=== PATIENT | female | born 1930 | race Caucasian/White ===

== ENCOUNTER → 2017-11-20 | Outpatient (CLI) | payer OTHER ==
[~2017-11-20] VITALS: Ht 172.7 cm; Wt 79.8 kg
[~2017-11-20] MED LIST: ALENDRONATE SOD70 MG PO; ALLEGRA-D 24 H1 EACH PO; ASPIR 8181 MG PO; BENTYL 10 MG CA10 M1 PO; CELEBREX 200 M200 M1 PO; CO Q-10100 MG PO; CRESTOR10 MG PO; FISH OIL 1,001000 M2 PO; FLAX OIL1000 MG PO; FLUTICASONE PRO16 GM NASAL; GAS RELIEF125 MG PO; IRBESARTAN300 MG PO; MAGBID ER84 MG PO; MECLIZINE HCL25 MG PO; NEURONTIN 300300 M1 PO; PRILOSEC 20 MG20 MG PO; RESTASIS1 EACH OPHTHALMIC; UNICOMPLEX M TA1 TA1 PO; VITAMIN B COMP1 EACH PO; VITAMIN D2000 UNIT PO
--- NOTE | ~2017-11-20 | HPC ---
[facility] [place] [address] PAIN MANAGEMENT CONSULTATION Name: KODI LEUNG [id number] Admission: 11/20/17 Attend Phys: Brodie Benitez DO Discharge: Date of : 32 Report #: [id number] THIS REPORT FOR: //name// CC: YAZAN Benitez DATE OF SERVICE: 11/20/2017 The patient is a pleasant 87-year-old female, seen in consultation at the request of Dr. Burgos for assistance with management of chronic axial back pain. She notes chronic back pain for some time, has been using a cane for balance of last 6-8 months. She fell in January with exacerbation of back pain and falling about 6 weeks ago, has significant pain exacerbated across the low back, left greater than right side, some radiation in the posterior thigh, but not below the knee. She denies myelopathic symptoms including weakness, paresthesia, bowel or bladder continence changes. Notes pain is exacerbated with walking, standing and weightbearing. Gets some relief with heat and pain medicines. Describes steady stabbing pain, she rates anywhere from 7-9 on a VAS. REVIEW OF SYSTEMS: Complete review of systems was attached to chart and gone over with the patient. She is . She does not smoke or drink alcohol to excess. History of hypertension, treated with irbesartan. History of some IBS symptoms, well treated with dicyclomine; gastroesophageal reflux for which she takes Prilosec; dyslipidemia for which takes Crestor. Takes Celebrex 200 mg daily for aforementioned axial back pain. Gabapentin 300 mg twice a day for chronic pain as well. Remaining review of systems is noncontributory. She has had surgery on her feet and bilateral knees, feet in the late and knee surgery in the mid-1999s (2004 and 2005). The patient works as a homemaker. Pain impact score notes significant impact on activity, walking and work. PHYSICAL EXAMINATION: Reveals a 5 feet 8 inches, 176-pound female, BMI is 26.8 kg/m2, blood pressure 145/65, pulse 72, respirations 16, room air oxygen saturation 96%. Rises from chair using armrest. Cranial nerves 2-12 are grossly intact. Pupils are equal and react to light and accommodation. Extraocular muscles are intact. She does have some subjective vertigo, again no nystagmus. Thyroid is modestly enlarged. Cervical range of motion is full. 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 She does have a notable thoracic kyphosis, a bit of an ataxic gait. Tender in the lumbar paravertebral muscles and SI area, left greater than right. Heart is regular rhythmical without murmur. Lungs show some scattered rhonchi. Lower extremities strength shows diminished strength in left leg to all muscle groups [address] [address] PAIN MANAGEMENT CONSULTATION Name: KODI LEUNG Room #: REG [facility].#: [id number] Admission: 11/20/17 Attend Phys: Brodie Benitez DO Discharge: Date of : 32 Report #: [id number] tested about 3/5 versus 4/5 for the right leg. Straight leg raise is negative. Patellar and Achilles reflexes generally preserved. Positive KERI test on the left. Positive Gaenslen's on the left. DIAGNOSTIC STUDIES: Include x-rays of the lumbar spine from 05/08/2017 after the January fall, but before the most recent fall, did note retrolisthesis at L4-L5 with some facet arthropathy. 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 RECOMMENDATIONS: After discussion with the patient today, we elected to move forward with left SI joint injection under fluoroscopy. Follow up in 2 weeks for reevaluation, consideration for left L4-L5 and L5-S1 facet joint injection under fluoroscopy if indicated clinically. Thanks for allowing me to participate in the patient's care. I will keep you abreast of her progress. PROCEDURE NOTE: Left SI joint injection under fluoroscopy. PROCEDURE: After informed consent was obtained, the patient was taken to the fluoroscopy suite and placed in prone position. After sterile prep and drape, skin wheal was raised. A 22-gauge stylet needle was placed to contact the inferior aspect of the left SI joint. Negative aspiration was accomplished. 1 mL of Omnipaque was injected showed spread in the joints followed with 40 mg triamcinolone plus 2 mL of 0.5% preservative-free bupivacaine. Needle was removed. The area was cleansed, Band-Aids applied. The patient was monitored for an appropriate period of time, discharged in good and stable condition. Fluoroscopy time was 7 seconds. The patient noted incremental relief on discharge. Follow up in 2 weeks to evaluate efficacy and discuss further therapeutic options. I will keep you abreast of her progress. <ELECTRONICALLY SIGNED> By: Brodie Benitez DO 11/21/17 0922 1602 2220 Brodie Benitez, DO /nt
[2017-11-20 13:18] VITALS: BP 145/65
== END | disposition home or self-care (01) ==
LOC: PAIN 07:00
DX: M53.3 Sacrococcygeal disorders, not elsewhere classified (principal); M47.817 Spondylosis without myelopathy or radiculopathy, lumbosacral region; G89.29 Other chronic pain; E78.5 Hyperlipidemia, unspecified; I10 Essential (primary) hypertension; R42 Dizziness and giddiness; Z68.26 Body mass index [BMI] 26.0-26.9, adult; Z79.899 Other long term (current) drug therapy; K58.9 Irritable bowel syndrome, unspecified; K21.9 Gastro-esophageal reflux disease without esophagitis

== ENCOUNTER → 2017-12-08 | Outpatient (CLI) | payer OTHER ==
[~2017-12-08] VITALS: Ht 172.7 cm; Wt 78.0 kg
--- NOTE | ~2017-12-08 | HPC ---
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 We proceeded with left SI joint injection at that time. She returns to the pain clinic today noting incremental improvement of baseline pain. Pain is a little bit higher and is now over the right low back. The patient notes the pain is exacerbated with standing, walking and rotating. Does note that the left side is better following the prior injection. Rates the pain as a 7 on a VAS. ASSESSMENT: Symptomatic lumbosacral spondylosis and lumbar spondylosis without myelopathy. RECOMMENDATION: Right L4-L5 and L5-S1 facet joint injection under fluoroscopy. Continue with range of motion, stretching and PT. Follow up in 8 weeks for reevaluation. PROCEDURE: Right L4-L5 and L5-S1 facet joint injection under fluoroscopy. INDICATION: M47.816, M47.817. DESCRIPTION OF PROCEDURE: After written informed consent was obtained, the patient was taken to the fluoroscopy suite and placed in the prone position. After sterile prep and drape, skin wheal was raised. A 22-gauge stylet needle was placed to contact the inferior aspect of the right L4-L5 facet joint. A second needle was placed to contact the inferior aspect of the left L5-S1 facet joint. Negative aspiration was accomplished. 0.5 mL of Omnipaque was injected, which showed spread within joints followed with 20 mg of triamcinolone plus 1 mL of 0.5% preservative free bupivacaine. Needle was removed, the area was cleansed and Band-Aid was applied. The patient monitored for an appropriate period of time, discharged in good and stable condition, noting incremental improvement of baseline pain. Fluoroscopy time was under 15 seconds. <ELECTRONICALLY SIGNED> By: Brodie Benitez DO 12/11/17 0811 1554 0730 Brodie Benitez DO /nt
[2017-12-08 13:17] VITALS: BP 154/70
== END | disposition home or self-care (01) ==
LOC: PAIN 12-05 09:08
DX: M47.816 Spondylosis without myelopathy or radiculopathy, lumbar region (principal); M47.817 Spondylosis without myelopathy or radiculopathy, lumbosacral region; M53.3 Sacrococcygeal disorders, not elsewhere classified; Z79.82 Long term (current) use of aspirin; Z79.899 Other long term (current) drug therapy

== ENCOUNTER → 2017-12-29 | Outpatient (CLI) | payer OTHER ==
[~2017-12-29] VITALS: Ht 172.7 cm; Wt 76.3 kg
--- NOTE | ~2017-12-29 | HPC ---
[facility] [address] PAIN MANAGEMENT CONSULTATION Name: LEUNGKODI BOLANOS Wilbert Room #: REG [facility] Mikey.#: [id number] Admission: 12/29/17 Attend Phys: Brodie Benitez DO Discharge: Date of : 32 Report #: [id number] THIS REPORT FOR: //name// CC: Nael Benitez HISTORY OF PRESENT ILLNESS: The patient is an 87-year-old female, prior seen in the pain clinic on 12/08/2017. We did a right L4-L5 and L5-S1 facet joint injections with significant improvement of her functional status. She is much better, able to stand longer after left SI joint injection 11/20/2017. Her SI and low lumbar pain seems to be improved. She still, however, has pain that she rates a 0-8 on a VAS pain across the low back. She does have bilateral knee pain (she does get shots in the knees and take Celebrex for this). She rises from chair using armrest, antalgic gait. Lumbar flexion is limited, diffuse tenderness across the low back, modestly positive straight leg raise bilaterally. Reviewing the MRI, which is somewhat dated, she does have transitional anatomy. The rudimentary disk at S1-S2 and retrolisthesis at L4-L5. ASSESSMENT: Symptomatic lumbar radiculopathy secondary to spinal stenosis, ongoing axial back pain relatively improved with current interventional therapy. RECOMMENDATION: Injection under fluoroscopy today. Follow up simply as needed. Continue physical activity as able. PROCEDURE NOTE PROCEDURE: Lumbar epidural injection under fluoroscopy. PROCEDURE: Lumbar epidural steroid injection. PROCEDURE NOTE: After both written and informed consent to include risk of spinal cord damage, increased pain, weakness and dural puncture, the patient was taken to the fluoroscopy suite, placed in the prone position. After sterile prep and drape, a skin wheal with lidocaine was raised. A 22-gauge epidural Tuohy needle was inserted in the midline at L5-S1 with good loss to resistance. Negative aspiration for cerebrospinal fluid or blood was noted. Then 1 mL of Omnipaque under biplanar fluoroscopy showed good spread within the epidural space. This was followed with 60 mg of triamcinolone plus 1 mL of 1.5% preservative-free Xylocaine, 0.5 mL Xylocaine was then injected to flush the [address] [address] PAIN MANAGEMENT CONSULTATION Name: LEUNGKODI Room #: [facility]#: [id number] Admission: 12/29/17 Attend Phys: Brodie Benitez DO Discharge: Date of : 32 Report #: [id number] needle; it was removed. The patient was monitored for an appropriate period of time and discharged in good and stable condition. <ELECTRONICALLY SIGNED> By: Brodie Benitez DO 12/31/17 0740 1519 2105 Brodie Benitez DO /nt
[2017-12-29 13:07] VITALS: BP 160/72
== END ==
LOC: PAIN 06:56
DX: M54.16 Radiculopathy, lumbar region (principal); G89.29 Other chronic pain; M48.061 Spinal stenosis, lumbar region without neurogenic claudication; Z98.890 Other specified postprocedural states; Z79.82 Long term (current) use of aspirin; Z79.899 Other long term (current) drug therapy

== ENCOUNTER → 2018-10-15 | Outpatient (CLI) | payer OTHER, MEDICARE ==
[~2018-10-15] VITALS: Ht 172.7 cm; Wt 78.1 kg
[~2018-10-15] MED LIST changes: +IRBESARTAN-HCT1 EAC1 PO; +NORVASC2.5 MG PO
[2018-10-15 13:35] VITALS: BP 123/68
--- NOTE | 2018-10-15 13:51 | NUR ---
Pain Clinic Assessment: 1. History of Osteoarthritis: knees back HIPS History of Rheumatoid Arthritis: Not Applicable 2. Height: 5 ft. 8 in. 172.7 cm. Weight: 172.2 lb. oz. 78.109 kg. Patient's BMI: 26.2 3. Vital Signs: BP: 123/68 Pulse: 65 Resp: 16 Temp: 02 Sat: 98 ECG Mon: 4. Pain Intensity: 6-7 5. Fall Risk: Dizziness: Y Needs help standing or walking: Y Fallen in the last 3 months: N Fall risk comments: USES CANE 6. Patient on Blood Thinner: None 7. History of Hypertension: Y 8. Opioid Therapy greater than 6 weeks: N Opiate Contract Signed: 9. Risk Assessment Tool Provided: LOW RISK 10. Functional Assessment Tool: 11. Recreational Drug Use: Never Drug Type: Tobacco Use: Never Smoker Tobacco Type: Amount or Packs/day: How Many Years: Alcohol Use: Yes Frequency: Daily Quant: 1
--- NOTE | 2018-10-21 15:29 | HPC ---
[facility] [place] [address] PAIN MANAGEMENT CONSULTATION Name: KODI LEUNG Room #: REG [facility].#: [id number] Admission: 10/15/18 ������������������ Attend Phys: Rustam Vaughan MD Discharge: ������������������ Date of : 32 Report #: [id number] THIS REPORT FOR: //name// CC: YAZAN Vaughan DATE OF SERVICE: 10/15/2018 The patient returns to the pain clinic for the first time since December of last year. I previously treated her for low back pain with radiculopathy successfully and the pain is now returning. She scores pain as a 6-7/10 in the low back with chronic aching, tenderness and soreness. Pain is increased with standing, walking and bending. MEDICATIONS: Reviewed and reconciled. All provided by Dr. Burgos. She is on amlodipine for hypertension. She currently is utilizing gabapentin and celecoxib 200 mg daily for pain with some improvement. Occasionally, she takes it twice a day. ALLERGIES: None. PAST MEDICAL HISTORY: Significant for osteoarthritis with arthroscopy of the knee in 2004 and 2005. She complains of generalized degenerative osteoarthritis and kidney disease. REVIEW OF SYSTEMS: Positive for nocturia. She has some fatigue and weakness. PHYSICAL EXAMINATION: A pleasant 87-year-old. She is alert and oriented, without signs of depression, anxiety, dementia or overmedication. She is able to independently move from sitting to standing position, walks with mildly antalgic features. She has mild tenderness across the low back. Straight leg raising is positive to the right and reproducing some pain into the right hip. Most of the pain is across the lumbosacral segment. IMPRESSION: Chronic low back pain with radiculopathy secondary to lumbar degenerative disease and lumbar scoliosis. The patient has responded nicely to prior epidural injections. PLAN: Repeat epidural injection under fluoroscopic guidance. PROCEDURE: She was taken to fluoroscopic suite, placed prone, skin prepped with ChloraPrep, skin anesthetized over the L5-S1 interspace. A 20-gauge Tuohy epidural needle advanced first attempt to the epidural space with loss of resistance technique. No blood or CSF was aspirated. 1 mL of Omnipaque injected. Good spread of dye observed in the epidural space followed by 3 mL of [facility] [address] [place] [address] PAIN MANAGEMENT CONSULTATION Name: KODI LEUNG Room #: REG [facility].#: [id number] Admission: 10/15/18 ������������������ Attend Phys: Rustam Vaughan MD Discharge: ������������������ Date of : 32 Report #: [id number] 0.5% lidocaine mixed with 80 mg of triamcinolone. She tolerated the procedure well. Pain score 1 at discharge. Follow up as needed. ��������������������������������������������� <ELECTRONICALLY SIGNED> ���������������������������������������� By: Rustam Vaughan MD ��������������������������������������������� 10/21/18 1529 1114 2234 Rustam Vaughan MD /nt
== END | disposition home or self-care (01) ==
LOC: PAIN 06:50
DX: M51.16 Intervertebral disc disorders with radiculopathy, lumbar region (principal); M41.86 Other forms of scoliosis, lumbar region; G89.29 Other chronic pain; I10 Essential (primary) hypertension; M17.10 Unilateral primary osteoarthritis, unspecified knee; Z79.899 Other long term (current) drug therapy; Z98.890 Other specified postprocedural states; Z79.82 Long term (current) use of aspirin

== ENCOUNTER → 2018-11-30 | Outpatient (CLI) | payer OTHER, MEDICARE ==
[~2018-11-30] VITALS: Ht 172.7 cm; Wt 73.2 kg
--- NOTE | ~2018-11-30 | HPC ---
[facility] [place] [address] [place] [address] PAIN MANAGEMENT CONSULTATION Name: KODI LEUNG [facility] [id number] Admission: 11/30/18 ������������������ Attend Phys: Rustam Vaughan MD Discharge: ������������������ Date of : 32 Report #: [id number] THIS REPORT FOR: //name// CC: YAZAN Vaughan FOLLOW UP VISIT: Low back pain. The patient returns to pain clinic today. She still has some back pain and unfortunately did not respond as well as we hoped for her most recent epidural. Ten days ago, which would have been roughly 6 weeks after her injection she developed classic shingles rash in the left T4-5 distribution. The rash was identified fairly quickly and she was fortunately started on acyclovir and is completing that course of therapy at this time. The lesions have dried fairly quickly and there are no open lesions at this time, although she has significant scarring. There is light touch discomfort and sensitivity consistent with this painful neuropathic condition. She believes that she is getting slightly better. Her initial presentation was for low back pain, which was significantly spondylitic; however, there was also some radicular component. She has had previous epidural injections with good improvement. Her last injection was in December. I reviewed both of those films. Injection site quite similar, so I would not give up necessarily on epidural injections and would consider repeat injection as a possibility. I will note that Dr. Benitez's previous injection for her was at L5-S1. I injected her slightly above that at L4-L5 and if we repeat another injection, I would suggest that we do so in that location given her previous response. We will hold off at this point in time with her ongoing shingles. All medications were reviewed and reconciled. She is on no blood thinning medications. Dr. Burgos provided with amlodipine as well as irbesartan/hydrochlorothiazide for blood pressure. She takes no opioid medication. She is not a fall risk at this time and has not fallen within the last 3 months. SOCIAL HISTORY: She denies use of tobacco and alcohol. PHYSICAL EXAMINATION: Blood pressure 126/71, heart rate 79, respirations 16. She is 5 feet 8 inches with a BMI of 24.5. Examination of the shingles rash shows a very classic subacute well healed scarring along the T4-T5 distribution on the left with hypersensitivity. She has chronic pain across her low back and tenderness. Straight leg raising reproduces some pain, but mostly across the low back. There is not much discomfort into the lower extremities. Corral and Achilles reflexes are diminished bilaterally. Strength [place] [address] PAIN MANAGEMENT CONSULTATION Name: KODI LEUNG Room #: REG [facility] Aleksey#: [id number] Admission: 11/30/18 ������������������ Attend Phys: Rustam Vaughan MD Discharge: ������������������ Date of : 32 Report #: [id number] IMPRESSION: 1. Chronic low back pain with radiculopathy and spondylosis. She also has lumbar scoliosis. 2. Subacute healed lesions of shingles with some early persistent postherpetic neuralgia. 3. Hypertension. 4. Osteoarthritis, previous surgery on feet and bilateral knee. RECOMMENDATIONS: 1. I have ordered for her Lidoderm patches 5% to be applied 12 on and 12 off instructions provided. 2. Consider the use of tricyclic amitriptyline at very low dose, which has been shown to be helpful in the prevention of postherpetic neuralgia. We discussed this at some length. She does have fears of her frequent trips to the bathroom in the middle of the night. She does not want to sleep through these and she is also worried about getting up in the middle of the night and being unsteady on her feet. I do not want to create a fall risk and so I have held off on this important medication. We will keep it, however, in reserve and we will consider initiating therapy with amitriptyline if her postherpetic neuralgia is not resolving with time and her current medication regimen. Repeat epidural injection may be considered in another month or two if her back pain worsens. ��������������������������������������������� ���������������������������������������� By: ��������������������������������������������� [id number] Rustam Vaughan MD /nt
[2018-11-30 12:55] VITALS: BP 126/61
--- NOTE | 2018-11-30 13:04 | NUR ---
Pain Clinic Assessment: 1. History of Osteoarthritis: knees back HIPS History of Rheumatoid Arthritis: Not Applicable 2. Height: 5 ft. 8 in. 172.7 cm. Weight: 161.4 lb. oz. 73.211 kg. Patient's BMI: 24.5 3. Vital Signs: BP: 126/61 Pulse: 79 Resp: 16 Temp: 02 Sat: 96 ECG Mon: 4. Pain Intensity: 6 BACK 10 SHINGLES 5. Fall Risk: Dizziness: N Needs help standing or walking: Y Fallen in the last 3 months: N Fall risk comments: USES CANE 6. Patient on Blood Thinner: None 7. History of Hypertension: Y 8. Opioid Therapy greater than 6 weeks: N Opiate Contract Signed: 9. Risk Assessment Tool Provided: LOW RISK 10. Functional Assessment Tool: 11. Recreational Drug Use: Never Drug Type: Tobacco Use: Never Smoker Tobacco Type: Amount or Packs/day: How Many Years: Alcohol Use: No Frequency: Quant:
== END ==
LOC: PAIN 06:56
DX: G89.29 Other chronic pain (principal); M47.26 Other spondylosis with radiculopathy, lumbar region; M41.86 Other forms of scoliosis, lumbar region; I10 Essential (primary) hypertension; M17.0 Bilateral primary osteoarthritis of knee; M19.071 Primary osteoarthritis, right ankle and foot; M19.072 Primary osteoarthritis, left ankle and foot; Z79.899 Other long term (current) drug therapy

== ENCOUNTER → 2019-01-21 | Outpatient (CLI) | payer OTHER, MEDICARE ==
[~2019-01-21] VITALS: Ht 172.7 cm; Wt 72.8 kg
[~2019-01-21] MED LIST changes: +LIDOCAINE1 EACH TOP; +MAGNESIUM PO
[2019-01-21 13:38] VITALS: BP 143/69
--- NOTE | 2019-01-21 13:56 | NUR ---
Pain Clinic Assessment: 1. History of Osteoarthritis: knees back HIPS History of Rheumatoid Arthritis: Not Applicable 2. Height: 5 ft. 8 in. 172.7 cm. Weight: 160.4 lb. oz. 72.757 kg. Patient's BMI: 24.4 3. Vital Signs: BP: 143/69 Pulse: 70 Resp: 14 Temp: 02 Sat: 96 ECG Mon: 4. Pain Intensity: 9-WALKING 5. Fall Risk: Dizziness: Y Needs help standing or walking: Y Fallen in the last 3 months: N Fall risk comments: USES CANE 6. Patient on Blood Thinner: None 7. History of Hypertension: Y 8. Opioid Therapy greater than 6 weeks: N Opiate Contract Signed: 9. Risk Assessment Tool Provided: LOW RISK 10. Functional Assessment Tool: 11. Recreational Drug Use: Never Drug Type: Tobacco Use: Never Smoker Tobacco Type: Amount or Packs/day: How Many Years: Alcohol Use: No Frequency: Quant:
--- NOTE | 2019-01-26 17:25 | HPC ---
[facility] [address] [place] [address] PAIN MANAGEMENT CONSULTATION Name: KODI LEUNG [facility] [id number] Admission: 01/21/19 ������������������ Attend Phys: Rustam Vaughan MD Discharge: ������������������ Date of : 32 Report #: [id number] THIS REPORT FOR: //name// CC: Nael Vaughan DATE OF SERVICE: 01/21/2019 Followup visit for low back pain without radiculopathy. HISTORY OF PRESENT ILLNESS: The patient returns to pain clinic today after her initial visit on 12/01/2018. At that time, I provided with just medication. She had received an epidural injection at L5-S1 in September. She has found that the epidural injections really do not provide much in the way of lasting relief. Her back pain is mostly spondylitic and mechanical at this time. I have suggested that we may proceed with facet injections today rather than an epidural, given her poor response. PQRS 1. She has a history of osteoarthritis involving knees, back, hips, and spondylosis clearly evident on her x-rays in the pain clinic. 2. Height is 5 feet 8 inches, weight 160, BMI 24.4. 3. Vital signs: Blood pressure 143/69, heart rate 70, respirations 14, and O2 sat 96. 4. Pain intensity is 9/10 with walking. 5. She is a fall risk. She has perhaps some vestibular issue with proprioception affected. At times she just feels as though she is going down, it is not dizziness and it is not weakness. She is scheduled for physical therapy. 6. The patient is not on blood thinner. 7. She has a history of hypertension. 8. No opioid therapy, but she has completed an opioid risk tool and is considered at low risk. 9. She has never smoked and denies use of current alcohol. PHYSICAL EXAMINATION: Pain is noted across the lumbosacral segment with forward flexion and extension. Pain is worse with back extension. IMPRESSION: Lumbar spondylosis. PROCEDURE: Bilateral L3-L4, L4-L5, L5-S1 facet injections. After informed consent, she was taken to fluoroscopic suite, placed prone. Skin was prepped with ChloraPrep. We began first on the left. Using fluoroscopic views, I gently advanced a 22-gauge spinal needle into the posterior inferior [address] [address] PAIN MANAGEMENT CONSULTATION Name: LEUNGKODI M Room #: REG [facility].#: [id number] Admission: 01/21/19 ������������������ Attend Phys: Rustam Vaughan MD Discharge: ������������������ Date of : 32 Report #: [id number] recess of the facet joint of L5-S1, L4-L5 and L3-L4. At each level, I injected 1 mL of 0.5% bupivacaine mixed with 15 mg of triamcinolone. She tolerated the procedures well. C-arm was then moved to the right. We performed a mirror image injection. At the conclusion of the procedure, her pain reduced by about half. She was discharged with a followup visit planned as needed. ��������������������������������������������� <ELECTRONICALLY SIGNED> ���������������������������������������� By: Rustam Vaughan MD ��������������������������������������������� 01/26/19 1725 1653 0139 Rustam Vaughan MD /nt
== END | disposition home or self-care (01) ==
LOC: PAIN 01-07 08:40
DX: M47.817 Spondylosis without myelopathy or radiculopathy, lumbosacral region (principal); M17.10 Unilateral primary osteoarthritis, unspecified knee; M16.10 Unilateral primary osteoarthritis, unspecified hip; Z79.899 Other long term (current) drug therapy

== ENCOUNTER → 2020-05-25 | Outpatient (CLI) | payer OTHER, MEDICARE ==
[~2020-05-25] VITALS: Ht 172.7 cm; Wt 74.4 kg
[~2020-05-25] MED LIST changes: +ALLEGRA ALLERG180 MG PO; -ALLEGRA-D 24 H1 EACH PO; +METAMUCIL1 EAC1 PO; -NEURONTIN 300300 M1 PO; +NEURONTIN 300M300 M2 PO; +NEXIUM40 MG PO; -PRILOSEC 20 MG20 MG PO
[2020-05-25 12:56] VITALS: BP 129/65
--- NOTE | 2020-05-25 13:02 | NUR ---
Pain Clinic Assessment: 1. History of Osteoarthritis: knees back HIPS History of Rheumatoid Arthritis: Not Applicable 2. Height: 5 ft. 8 in. 172.7 cm. Weight: 164.0 lb. oz. 74.390 kg. Patient's BMI: 24.9 3. Vital Signs: BP: 129/65 Pulse: 64 Resp: 18 Temp: 02 Sat: 98 ECG Mon: 4. Pain Intensity: 7-WALKING/STAND 5. Fall Risk: Dizziness: N Needs help standing or walking: Y Fallen in the last 3 months: N Fall risk comments: USES CANE 6. Patient on Blood Thinner: None 7. History of Hypertension: Y 8. Opioid Therapy greater than 6 weeks: N Opiate Contract Signed: 9. Risk Assessment Tool Provided: LOW RISK 10. Functional Assessment Tool: 11. Recreational Drug Use: Never Drug Type: Tobacco Use: Never Smoker Tobacco Type: Amount or Packs/day: How Many Years: Alcohol Use: No Frequency: Quant:
== END | disposition home or self-care (01) ==
LOC: PAIN 05-04 07:00
PROVIDERS: ATTEND Anesthesiology Pain Medicine
DX: M47.816 Spondylosis without myelopathy or radiculopathy, lumbar region (principal); M54.5 Low back pain; Z79.899 Other long term (current) drug therapy; Z98.890 Other specified postprocedural states; Z90.710 Acquired absence of both cervix and uterus; Z90.49 Acquired absence of other specified parts of digestive tract

== ENCOUNTER → 2020-09-14 | Outpatient (CLI) | payer OTHER, MEDICARE ==
[~2020-09-14] VITALS: Ht 172.7 cm; Wt 77.4 kg
[2020-09-14 14:45] VITALS: BP 142/70
--- NOTE | 2020-09-14 14:54 | NUR ---
Pain Clinic Assessment: 1. History of Osteoarthritis: knees back HIPS History of Rheumatoid Arthritis: Not Applicable 2. Height: 5 ft. 8 in. 172.7 cm. Weight: 170.6 lb. oz. 77.384 kg. Patient's BMI: 25.9 3. Vital Signs: BP: 142/70 Pulse: 62 Resp: 16 Temp: 02 Sat: 96 ECG Mon: 4. Pain Intensity: 7 5. Fall Risk: Dizziness: N Needs help standing or walking: Y Fallen in the last 3 months: N Fall risk comments: USES CANE 6. Patient on Blood Thinner: None 7. History of Hypertension: Y 8. Opioid Therapy greater than 6 weeks: N Opiate Contract Signed: 9. Risk Assessment Tool Provided: LOW RISK 10. Functional Assessment Tool: 11. Recreational Drug Use: Never Drug Type: Tobacco Use: Never Smoker Tobacco Type: Amount or Packs/day: How Many Years: Alcohol Use: No Frequency: Quant:
== END | disposition home or self-care (01) ==
LOC: PAIN 09-07 10:46
PROVIDERS: ATTEND Anesthesiology Pain Medicine
DX: M17.0 Bilateral primary osteoarthritis of knee (principal); M25.561 Pain in right knee; M25.562 Pain in left knee; G89.29 Other chronic pain; I10 Essential (primary) hypertension; M19.90 Unspecified osteoarthritis, unspecified site; Z98.890 Other specified postprocedural states; Z79.899 Other long term (current) drug therapy

== ENCOUNTER → 2020-09-25 | Outpatient (CLI) | payer OTHER, MEDICARE ==
[~2020-09-25] VITALS: Ht 172.7 cm; Wt 76.5 kg
[2020-09-25 15:03] VITALS: BP 138/72
== END | disposition home or self-care (01) ==
LOC: PAIN 07:01
PROVIDERS: ATTEND Anesthesiology Pain Medicine
DX: M17.0 Bilateral primary osteoarthritis of knee (principal); M25.561 Pain in right knee; M25.562 Pain in left knee; G89.29 Other chronic pain; I10 Essential (primary) hypertension; M19.90 Unspecified osteoarthritis, unspecified site; Z98.890 Other specified postprocedural states; Z79.899 Other long term (current) drug therapy

== ENCOUNTER → 2020-10-23 | Outpatient (CLI) | payer OTHER, MEDICARE ==
[~2020-10-23] VITALS: Ht 172.7 cm; Wt 75.8 kg
[2020-10-23 14:40] VITALS: BP 142/67
--- NOTE | 2020-10-23 14:49 | NUR ---
Pain Clinic Assessment: 1. History of Osteoarthritis: knees back HIPS History of Rheumatoid Arthritis: Not Applicable 2. Height: 5 ft. 8 in. 172.7 cm. Weight: 167.0 lb. oz. 75.751 kg. Patient's BMI: 25.4 3. Vital Signs: BP: 142/67 Pulse: 72 Resp: 20 Temp: 02 Sat: 96 ECG Mon: 4. Pain Intensity: 7 5. Fall Risk: Dizziness: N Needs help standing or walking: Y Fallen in the last 3 months: N Fall risk comments: USES CANE 6. Patient on Blood Thinner: None 7. History of Hypertension: Y 8. Opioid Therapy greater than 6 weeks: N Opiate Contract Signed: 9. Risk Assessment Tool Provided: LOW RISK 10. Functional Assessment Tool: 11. Recreational Drug Use: Never Drug Type: Tobacco Use: Never Smoker Tobacco Type: Amount or Packs/day: How Many Years: Alcohol Use: No Frequency: Quant:
== END | disposition home or self-care (01) ==
LOC: PAIN 10-12 06:49
PROVIDERS: ATTEND Anesthesiology Pain Medicine
DX: M17.0 Bilateral primary osteoarthritis of knee (principal); M25.561 Pain in right knee; M25.562 Pain in left knee; G89.29 Other chronic pain; I10 Essential (primary) hypertension; M19.90 Unspecified osteoarthritis, unspecified site; Z98.890 Other specified postprocedural states; Z79.899 Other long term (current) drug therapy

== ENCOUNTER → 2021-02-12 | Outpatient (CLI) | payer OTHER, MEDICARE ==
[~2021-02-12] VITALS: Ht 172.7 cm; Wt 75.4 kg
[2021-02-12 15:28] VITALS: BP 145/71
--- NOTE | 2021-02-12 15:49 | NUR ---
Pain Clinic Assessment: 1. History of Osteoarthritis: knees back HIPS History of Rheumatoid Arthritis: Not Applicable 2. Height: 5 ft. 8 in. 172.7 cm. Weight: 166.2 lb. oz. 75.388 kg. Patient's BMI: 25.3 3. Vital Signs: BP: 145/71 Pulse: 63 Resp: 16 Temp: 02 Sat: 98 ECG Mon: 4. Pain Intensity: 7 5. Fall Risk: Dizziness: N Needs help standing or walking: Y Fallen in the last 3 months: N Fall risk comments: USES CANE 6. Patient on Blood Thinner: None 7. History of Hypertension: Y 8. Opioid Therapy greater than 6 weeks: N Opiate Contract Signed: 9. Risk Assessment Tool Provided: LOW RISK 10. Functional Assessment Tool: 11. Recreational Drug Use: Never Drug Type: Tobacco Use: Never Smoker Tobacco Type: Amount or Packs/day: How Many Years: Alcohol Use: No Frequency: Quant:
== END | disposition home or self-care (01) ==
LOC: PAIN 10:19
PROVIDERS: ATTEND Anesthesiology Pain Medicine
DX: M47.816 Spondylosis without myelopathy or radiculopathy, lumbar region (principal); M41.86 Other forms of scoliosis, lumbar region; G89.29 Other chronic pain; I10 Essential (primary) hypertension; M19.90 Unspecified osteoarthritis, unspecified site; Z98.890 Other specified postprocedural states; Z79.899 Other long term (current) drug therapy

== ENCOUNTER → 2021-02-26 | Outpatient (CLI) | payer OTHER, MEDICARE ==
[~2021-02-26] VITALS: Ht 172.7 cm; Wt 75.1 kg
[2021-02-26 14:35] VITALS: BP 150/70
--- NOTE | 2021-02-26 14:51 | NUR ---
Pain Clinic Assessment: 1. History of Osteoarthritis: knees back HIPS History of Rheumatoid Arthritis: Not Applicable 2. Height: 5 ft. 8 in. 172.7 cm. Weight: 165.5 lb. oz. 75.070 kg. Patient's BMI: 25.2 3. Vital Signs: BP: 150/70 Pulse: 69 Resp: 18 Temp: 02 Sat: 97 ECG Mon: 4. Pain Intensity: 6 5. Fall Risk: Dizziness: N Needs help standing or walking: Y Fallen in the last 3 months: N Fall risk comments: USES CANE 6. Patient on Blood Thinner: None 7. History of Hypertension: Y 8. Opioid Therapy greater than 6 weeks: N Opiate Contract Signed: 9. Risk Assessment Tool Provided: LOW RISK 10. Functional Assessment Tool: 11. Recreational Drug Use: Never Drug Type: Tobacco Use: Never Smoker Tobacco Type: Amount or Packs/day: How Many Years: Alcohol Use: No Frequency: Quant:
== END | disposition home or self-care (01) ==
LOC: PAIN 07:55
PROVIDERS: ATTEND Anesthesiology Pain Medicine
DX: M54.5 Low back pain (principal); M47.26 Other spondylosis with radiculopathy, lumbar region; G89.29 Other chronic pain; I10 Essential (primary) hypertension; M19.90 Unspecified osteoarthritis, unspecified site; Z98.890 Other specified postprocedural states; Z79.899 Other long term (current) drug therapy

== ENCOUNTER → 2021-06-13 | Outpatient (CLI) | payer OTHER, MEDICARE | LOC: SJCVC 13:38 | PROVIDERS: ATTEND Internal Medicine | DX: R01.1 Cardiac murmur, unspecified (principal); I10 Essential (primary) hypertension; E78.5 Hyperlipidemia, unspecified; E88.81 Metabolic syndrome and other insulin resistance; K21.9 Gastro-esophageal reflux disease without esophagitis; M17.0 Bilateral primary osteoarthritis of knee; Z82.49 Family history of ischemic heart disease and other diseases of the circulatory system; Z79.899 Other long term (current) drug therapy ==

== ENCOUNTER → 2021-06-26 | Outpatient (CLI) | payer OTHER, MEDICARE | LOC: SJCVCIMAG 08:16 | PROVIDERS: ATTEND Internal Medicine | DX: I08.8 Other rheumatic multiple valve diseases (principal); I48.91 Unspecified atrial fibrillation; I11.0 Hypertensive heart disease with heart failure; I50.9 Heart failure, unspecified; Z95.1 Presence of aortocoronary bypass graft ==